=== PATIENT | female | born 1955 | race Caucasian/White ===

== ENCOUNTER 2021-08-14 17:33 | Emergency (ER) | payer OTHER ==
[~2021-08-14 17:33] MED LIST: OMNICEF 300 MG300 MG PO
[2021-08-14] MEDS ORDERED: LODINE CAP 300300 MG PO (20:04)
[2021-08-14] MEDS ORDERED: NORFLEX 100 MG100 MG PO (20:04)
== END 2021-08-14 20:21 | disposition home or self-care (01) ==
LOC: ER1 17:33
DX: S70.01XA Contusion of right hip, initial encounter (principal); S80.211A Abrasion, right knee, initial encounter; Z90.710 Acquired absence of both cervix and uterus; E11.9 Type 2 diabetes mellitus without complications; W01.0XXA Fall on same level from slipping, tripping and stumbling without subsequent striking against object, initial encounter
CPT/HCPCS: 73502; 73564; 99283